=== PATIENT | female | born 1995 | race Caucasian/White ===

== ENCOUNTER 2017-10-13 19:47 | Inpatient (IN) | payer BC ==
[~2017-10-13] VITALS: Ht 167.6 cm; Wt 73.2 kg
[2017-10-13] MEDS ORDERED: KETOROLAC TROMETHAMINE 30 MG/ML VIAL IV STA (20:39)
[2017-10-13] MEDS ORDERED: GI COCKTAIL PO ONE (20:45)
[2017-10-13] MEDS ORDERED: SODIUM CHLORIDE 0.9% 1000ML 1,000 ML IV ONE (20:45)
[2017-10-13 20:54] LABS: BASO % 0.3 %; BASO ABS # 0.03 K/uL (0-0.2); EOS % 0.4 %; EOS ABS # 0.04 K/uL (0-0.5); HEMATOCRIT 38.8 % (37-47); HEMOGLOBIN 13.7 g/dL (12.0-16.0); IG# 0.01 K/uL (0.00-0.02); LYMPH % 24.6 %; LYMPH ABS # 2.54 K/uL (1.2-3.4); MEAN CORPUSCULAR HEMOGLOBIN 31.4 pg (25-34); MEAN CORPUSCULAR HGB CONC 35.3 g/dl (32-36); MEAN PLATELET VOLUME 10.5 fL (7.4-10.4); MONO % 9.6 %; MONO ABS # 0.99 K/uL (0.11-0.59); NEUT ABS # 6.73 K/uL (1.4-6.5); PLATELET COUNT 224 K/uL (130-400); RED CELL DISTRIBUTION WIDTH CV 12.9 % (11.5-14.5); RED CELL DISTRIBUTION WIDTH SD 41.9 fL (36.4-46.3); WHITE BLOOD COUNT 10.34 K/uL (4.8-10.8)
[2017-10-13] MEDS ORDERED: ALUMINUM/MAGNESIUM SUSP 30 ML UDC ONE (21:02)
[2017-10-13] MEDS ORDERED: LIDOCAINE HCL 2% VISC SOLN 20 ML UDC ONE (21:03)
[2017-10-13 21:08] LABS: ALBUMIN 4.6 gm/dl (3.4-5.0); CALCIUM 9.6 mg/dl (8.5-10.1); CREATININE 1.03 mg/dl (0.60-1.20); POTASSIUM 3.4 mmol/L (3.5-5.1)
[2017-10-13 21:10] LABS: TOTAL PROTEIN 8.3 gm/dl (6.4-8.2)
[2017-10-13] MEDS ORDERED: OPTIRAY 320 IV PRN (22:00)
--- NOTE | 2017-10-13 22:05 | DIAGNOSTIC IMAGING REPORT ---
CHEST 2 VIEWS ROUTINE CLINICAL HISTORY: Atypical chest pain COMPARISON STUDY: No previous studies for comparison. FINDINGS: The cardiac and mediastinal contours are normal. There is no evidence of focal pulmonary consolidation. There is no evidence of failure. No pleural effusions are visualized.[ Slight increased density of the lung bases is felt to be secondary to overlying breast tissue attenuation. IMPRESSION: No active disease in the chest. Electronically signed by: Alexander Swann M.D. 10/13/2017 10:04 PM Dictated Date/Time: 10/13/2017 10:04 PM
[2017-10-13 22:07] LABS: CKMB 2.8 ng/ml (0.5-3.6)
[2017-10-13] MEDS ORDERED: PATIENT'S ALLERGY INFO NEEDS ENTERED STA (22:09)
--- NOTE | 2017-10-13 22:18 | DIAGNOSTIC IMAGING REPORT ---
CT ANGIOGRAM OF THE CHEST CLINICAL HISTORY: Atypical chest pain COMPARISON STUDY: Chest x-ray dated 10/13/2017 TECHNIQUE: Following the IV administration of 90 mL of Optiray-320, CT angiogram of the thorax was performed from the thoracic inlet to the lung bases utilizing the pulmonary embolus protocol. Images are reviewed in the axial, sagittal, and coronal planes. IV contrast was administered without complication. MIP imaging was performed. A dose lowering technique was utilized adhering to the principles of ALARA. CT DOSE: 338.42 mGycm FINDINGS: No pathologically enlarged axillary mediastinal or hilar lymph nodes were visualized. There was no evidence of thoracic aortic dilatation. There were no pulmonary artery filling defects to indicate acute pulmonary embolism. No pleural effusions are visualized. There is a pneumomediastinum with extension into the base of the neck. There is no focal pulmonary consolidation. There is mild to moderate respiratory motion artifact. No pneumothorax is visualized. IMPRESSION: 1. No CT evidence of acute pulmonary embolism 2. No evidence of focal pulmonary consolidation 3. Pneumomediastinum Electronically signed by: Alexander Swann M.D. 10/13/2017 10:17 PM Dictated Date/Time: 10/13/2017 10:13 PM
[2017-10-13] MEDS ORDERED: BCPILLS PO (22:31)
[2017-10-14] VITALS (9 sets, daily range): BP systolic 102–133; BP diastolic 57–78; PULSE 54–81; TEMP 36.4–37; O2SAT 94–100; Ht 167.6 cm; Wt 73.2 kg
--- NOTE | 2017-10-14 01:59 | EMERGENCY ROOM VISIT NOTE ---
History First contact with patient: 20:33 Chief Complaint: RESPIRATORY PROBLEMS Stated Complaint: CHEST DISCOMFORT, SOB-[facility] REFERRED Nursing Triage Summary: pt reports started with cough and sob at 1500 today denies chills History of Present Illness The patient is a 21 year old female who presents to the Emergency Room with complaints of chest pain shortness of breath symptoms that began roughly 5-1/2 hours prior to arrival. The patient states that she took a nap, and awoke around 3 PM. She states that she had discomfort at that time ithat radiated into her jaw. He went to a local urgent care clinic, and was referred to the ER for further management. The patient has not had fever, chills, coughing, wheezing, or recent travel history. No injury to explain her symptoms. She does take control on a daily basis but does not have chronic disease. She is not expressing lightheadedness, dizziness, or abdominal pain. She has not had symptoms like this in the past, and rates her overall discomfort a 4/10. Review of Systems More than 10 systems were reviewed and otherwise negative with the exception of history of present illness. Past Medical/Surgical History No chronic medical disease Family History No pertinent family history Social History Smoking Status: Never Smoker Occupation Status: [employer] student Current/Historical Medications Scheduled Control Pills ( Control Pills), 1 TAB PO DAILY Physical Exam Vital Signs Date Time Temp Pulse Resp B/P (MAP) Pulse Ox O2 Delivery O2 Flow Rate FiO2 10/14/17 01:05 67 10/14/17 00:00 83 16 127/74 97 Room Air 10/13/17 22:32 72 16 108/67 98 Room Air 10/13/17 21:11 73 10/13/17 20:52 84 18 119/78 100 Room Air 10/13/17 20:52 100 Room Air 10/13/17 20:16 36.9 78 20 110/67 99 Room Air Physical Exam VITALS: Vitals are noted on the nurse's note and reviewed by myself. Vital signs stable. GENERAL: Well-developed, well-nourished, white female, who is in no acute distress and resting comfortably. Patient is cooperative with the examination. EARS: External ear normal. External auditory canals clear, tympanic membranes pearly chowdhury without erythema or effusion bilaterally. EYES: Pupils equal round and reactive to light and accommodation. Conjunctivae without injection, sclerae without icterus. Extraocular movements intact. NOSE: Patent, turbinates without inflammation or discharge. MOUTH: Mucous membranes moist. Tonsils are not enlarged. Pharynx without erythema, blood, or exudate. Uvula midline. Airway patent. NECK: Supple without nuchal rigidity. No lymphadenopathy. No thyromegaly. Cervical spine is nontender. HEART: Regular rate and rhythm without murmurs gallops or rubs. LUNGS: Clear to auscultation bilaterally without wheezes, rales or rhonchi. No retractions or accessory muscle use. ABDOMEN: Positive normal bowel sounds x 4. Soft, nontender, without masses or organomegaly. No guarding or rebound tenderness. MUSCULOSKELETAL: No muscle atrophy, erythema, or edema noted. Full range of motion without joint tenderness in all extremities. No tenderness to palpation. Normal gait. Strength 5/5 throughout. NEURO: Patient was alert and oriented to person place and time. CN II through XII grossly intact. Medical Decision & Procedures ER Provider Diagnostic Interpretation: CHEST 2 VIEWS ROUTINE CLINICAL HISTORY: Atypical chest pain COMPARISON STUDY: No previous studies for comparison. FINDINGS: The cardiac and mediastinal contours are normal. There is no evidence of focal pulmonary consolidation. There is no evidence of failure. No pleural effusions are visualized.[ Slight increased density of the lung bases is felt to be secondary to overlying breast tissue attenuation. IMPRESSION: No active disease in the chest. CT ANGIOGRAM OF THE CHEST CLINICAL HISTORY: Atypical chest pain COMPARISON STUDY: Chest x-ray dated 10/13/2017 TECHNIQUE: Following the IV administration of 90 mL of Optiray-320, CT angiogram of the thorax was performed from the thoracic inlet to the lung bases utilizing the pulmonary embolus protocol. Images are reviewed in the axial, sagittal, and coronal planes. IV contrast was administered without complication. MIP imaging was performed. A dose lowering technique was utilized adhering to the principles of ALARA. CT DOSE: 338.42 mGycm FINDINGS: No pathologically enlarged axillary mediastinal or hilar lymph nodes were visualized. There was no evidence of thoracic aortic dilatation. There were no pulmonary artery filling defects to indicate acute pulmonary embolism. No pleural effusions are visualized. There is a pneumomediastinum with extension into the base of the neck. There is no focal pulmonary consolidation. There is mild to moderate respiratory motion artifact. No pneumothorax is visualized. IMPRESSION: 1. No CT evidence of acute pulmonary embolism 2. No evidence of focal pulmonary consolidation 3. Pneumomediastinum Laboratory Results 10/13/17 20:42 Red Blood Count 4.36, Mean Corpuscular Volume 89.0, Mean Corpuscular Hemoglobin 31.4, Mean Corpuscular Hemoglobin Concent 35.3, Mean Platelet Volume 10.5, Neutrophils (%) (Auto) 65.0, Lymphocytes (%) (Auto) 24.6, Monocytes (%) (Auto) 9.6, Eosinophils (%) (Auto) 0.4, Basophils (%) (Auto) 0.3, Neutrophils # (Auto) 6.73, Lymphocytes # (Auto) 2.54, Monocytes # (Auto) 0.99, Eosinophils # (Auto) 0.04, Basophils # (Auto) 0.03 10/13/17 20:42 Test 10/13/17 20:42 10/13/17 20:47 10/14/17 00:25 White Blood Count 10.34 K/uL (4.8-10.8) Red Blood Count 4.36 M/uL (4.2-5.4) Hemoglobin 13.7 g/dL (12.0-16.0) Hematocrit 38.8 % (37-47) Mean Corpuscular Volume 89.0 fL (80-100) Mean Corpuscular Hemoglobin 31.4 pg (25-34) Mean Corpuscular Hemoglobin Concent 35.3 g/dl (32-36) Platelet Count 224 K/uL (130-400) Mean Platelet Volume 10.5 fL (7.4-10.4) Neutrophils (%) (Auto) 65.0 % Lymphocytes (%) (Auto) 24.6 % Monocytes (%) (Auto) 9.6 % Eosinophils (%) (Auto) 0.4 % Basophils (%) (Auto) 0.3 % Neutrophils # (Auto) 6.73 K/uL (1.4-6.5) Lymphocytes # (Auto) 2.54 K/uL (1.2-3.4) Monocytes # (Auto) 0.99 K/uL (0.11-0.59) Eosinophils # (Auto) 0.04 K/uL (0-0.5) Basophils # (Auto) 0.03 K/uL (0-0.2) RDW Standard Deviation 41.9 fL (36.4-46.3) RDW Coefficient of Variation 12.9 % (11.5-14.5) Immature Granulocyte % (Auto) 0.1 % Immature Granulocyte # (Auto) 0.01 K/uL (0.00-0.02) Anion Gap 12.0 mmol/L (3-11) Est Creatinine Clear Calc Drug Dose 89.0 ml/min Estimated GFR () 90.6 Estimated GFR (Non- 78.2 BUN/Creatinine Ratio 12.8 (10-20) Calcium Level 9.6 mg/dl (8.5-10.1) Total Bilirubin 1.0 mg/dl (0.2-1) Aspartate Amino Transf (AST/SGOT) 26 U/L (15-37) Alanine Aminotransferase (ALT/SGPT) 21 U/L (12-78) Alkaline Phosphatase 87 U/L (45-117) Total Creatine Kinase 255 U/L (26-192) Creatine Kinase MB 2.8 ng/ml (0.5-3.6) Creatine Kinase MB Ratio 1.1 (0-3.0) Pro-B-Type Natriuretic Peptide 65 pg/ml (0-450) Total Protein 8.3 gm/dl (6.4-8.2) Albumin 4.6 gm/dl (3.4-5.0) Globulin 3.7 gm/dl (2.5-4.0) Albumin/Globulin Ratio 1.2 (0.9-2) Lipase 287 U/L (73-393) Bedside D-Dimer 386 ng/mlFEU (0-450) Bedside Troponin I 0.050 ng/ml (0-0.045) Troponin I 0.098 ng/ml (0-0.045) Medications Administered Medications (Trade) Dose Ordered Sig/Sarah Route Start Time Stop Time Status Last Admin Dose Admin Sodium Chloride 1,000 ml @ 999 mls/hr Q1H1M ONCE IV 10/13/17 20:45 10/13/17 21:45 DC 10/13/17 21:04 999 MLS/HR Ketorolac Tromethamine (Toradol Inj) 30 mg NOW STAT IV 10/13/17 20:39 10/13/17 20:41 DC 10/13/17 21:05 30 MG Al Hydroxide/Mg Hydroxide (Maalox Susp) 30 ml STK-MED ONCE .ROUTE 10/13/17 21:02 10/13/17 21:03 DC 10/13/17 21:04 30 ML Lidocaine HCl (Viscous Lidocaine 2% Soln) 20 ml STK-MED ONCE .ROUTE 10/13/17 21:03 10/13/17 21:04 DC 10/13/17 21:05 20 ML Miscellaneous Information (Patient'S Allergy Info Needs Entered) 1 ea NOW STAT N/A 10/13/17 22:09 10/13/17 22:10 DC 10/13/17 22:09 1 EA ED Course Physical exam and history were performed. Nursing notes, EMR, and Medication List were personally reviewed. Patient appears to have chest pain symptoms after waking from sleep this afternoon. On examination the patient appears well, and certainly is not toxic. EKG was performed and reviewed by myself and my attending as normal sinus rhythm without acute ST elevation. IV access was established and labs were obtained. Portable chest x-ray was performed. The patient was hydrated with normal saline, given IV Toradol, and given a GI cocktail as her symptoms could be reflux related. The patient's blood work is as above and was reviewed. She does not have a significantly elevated white blood cell count, gross anemia, bandemia, or significant electrolyte imbalance. Lipase and transaminases are nondiagnostic. D-dimer 1 is negative. The patient troponin is elevated at 0.05, which is just over the threshold of 0.045. Because of this CT scan was felt necessary. CT angiogram was performed, and while this does not reveal evidence of pneumonia or blood clot, there is a pneumomediastinum. I discussed the case with my attending physician, Dr. Barragan, who remain closely involved in patient care and decision making. We discussed the case with Dr. Laguna, thoracic surgery, who is willing to follow the patient as an outpatient for the pneumomediastinum if she is discharged. Because of her symptoms a second troponin was performed, roughly 4 hours after the initial troponin. The second troponin was 0.09, and was thus felt to be distinctly elevated from her initial testing. The patient certainly could have some level of myocarditis or other viral component. I discussed the case with the on-call hospitalist who agreed to evaluate the patient here in the department. Please see their dictation for further patient course, plan, and disposition. The chart was completed utilizing Dragon Speech Voice Recognition Software. Grammatical errors, random word insertions, pronoun errors, and incomplete sentences are an occasional consequence of this system due to software limitations, ambient noise, and hardware issues. Any formal questions or concerns about the content, text, or information contained within the body of this dictation should be directly addressed to the provider for clarification. . Medical Decision Differential diagnosis includes, but is not limited to: Myocardial infarction, dysrhythmia, pericarditis, pneumothorax, aortic aneurysm/dissection, DVT/PE, anxiety, GERD, PUD, electrolyte imbalance, thyroid disorder, pneumonia, bronchitis, pancreatitis, and others Impression Primary Impression: Elevated troponin Additional Impressions: Shortness of breath Pneumomediastinum Departure Information Referrals [facility] (PCP) Patient Instructions My [facility] Problem Qualifiers
[2017-10-14] MEDS ORDERED: ACETAMINOPHEN 325 MG TAB PO PRN (02:00)
[2017-10-14] MEDS ORDERED: TRAMADOL HCL 50 MG TAB PO PRN (02:00)
[2017-10-14] MEDS ORDERED: ONDANSETRON INJ 2 MG/ML 2 ML VIAL IV PRN (02:00)
[2017-10-14] MEDS ORDERED: MAGNESIUM HYDROXIDE SUSP 30 ML UDC PO PRN (02:00)
[2017-10-14] MEDS ORDERED: POLYETHYLENE (MIRALAX) 17 GM PACK PO PRN (02:00)
[2017-10-14] MEDS ORDERED: ALUMINUM/MAGNESIUM/SIMETH (MAALOX MAX) 30 ML UDC PO PRN (02:00)
--- NOTE | 2017-10-14 02:18 | History and Physical ---
History & Physical Date & Time of Service: Oct 14, 2017 at 02:04 Chief Complaint: Chest Discomfort, Sob-[facility] Referred Primary Care Physician: [facility] History of Present Illness Source: patient 21 y/o F who denies any significant history. She woke up from a nap with central CP prompting her to attend the ER. She denies SOB, N/V, fevers. Her pain has been persistent and nonradiating. The pt had a marginally elevated trop on initial labs and was sent for a CTA. The study not show a PE, however, a small pneumomediastinum was found. A troponin was related at a 4 hour interval and had increased. Her chest discomfort persisted. Past Medical/Surgical History Denies active medical issues Family History No histroy of early CAD in family Social History Does not smoke or drink - [employer] student Smoking Status: Never Smoker Occupational Status: [employer] student Allergies Coded Allergies: No Known Allergies (Unverified , 10/13/17) Home Medications Scheduled Control Pills ( Control Pills), 1 TAB PO DAILY Review of Systems Constitutional: No fever, No chills, No sweats Eyes: No worsening of vision ENT: No hearing loss, No unusual epistaxis, No nasal symptoms Respiratory: No cough, No sputum, No wheezing Cardiovascular: + chest pain, No orthopnea, No PND Abdomen: No pain, No nausea, No vomiting Musculoskeletal: No joint pain Genitourinary - Female: No dysuria, No urinary frequency, No urinary urgency Neurologic: No memory loss, No paralysis, No weakness Psychiatric: No depression symptoms Endocrine: No fatigue Hematologic / Lymphatic: No abnormal bleeding/bruising Integumentary: No rash Allergic / Immunologic: No environmental allergies Physical Exam Vital Signs Date Time Temp Pulse Resp B/P (MAP) Pulse Ox O2 Delivery O2 Flow Rate FiO2 10/14/17 01:05 67 10/14/17 00:00 83 16 127/74 97 Room Air 10/13/17 22:32 72 16 108/67 98 Room Air 10/13/17 21:11 73 10/13/17 20:52 84 18 119/78 100 Room Air 10/13/17 20:52 100 Room Air 10/13/17 20:16 36.9 78 20 110/67 99 Room Air General Appearance: WD/WN, no apparent distress Head: normocephalic Eyes: normal inspection ENT: normal ENT inspection, pharynx normal Neck: supple, thyroid normal Respiratory/Chest: chest non-tender, lungs clear, normal breath sounds Cardiovascular: regular rate, rhythm, no edema, no gallop Abdomen/GI: normal bowel sounds, non tender, soft Back: normal inspection, no CVA tenderness Extremities/Musculoskelatal: normal inspection, no calf tenderness, normal capillary refill, no pedal edema, normal range of motion Neurologic/Psych: clinical allergist II-XII nml as tested, no motor/sensory deficits, alert, oriented x 3 Skin: normal color, warm/dry, no rash Diagnostics Laboratory Results Results Past 24 Hours Test 10/13/17 20:42 10/13/17 20:47 10/14/17 00:25 Range/Units White Blood Count 10.34 4.8-10.8 K/uL Red Blood Count 4.36 4.2-5.4 M/uL Hemoglobin 13.7 12.0-16.0 g/dL Hematocrit 38.8 37-47 % Mean Corpuscular Volume 89.0 80-100 fL Mean Corpuscular Hemoglobin 31.4 25-34 pg Mean Corpuscular Hemoglobin Concent 35.3 32-36 g/dl Platelet Count 224 130-400 K/uL Mean Platelet Volume 10.5 7.4-10.4 fL Neutrophils (%) (Auto) 65.0 % Lymphocytes (%) (Auto) 24.6 % Monocytes (%) (Auto) 9.6 % Eosinophils (%) (Auto) 0.4 % Basophils (%) (Auto) 0.3 % Neutrophils # (Auto) 6.73 1.4-6.5 K/uL Lymphocytes # (Auto) 2.54 1.2-3.4 K/uL Monocytes # (Auto) 0.99 0.11-0.59 K/uL Eosinophils # (Auto) 0.04 0-0.5 K/uL Basophils # (Auto) 0.03 0-0.2 K/uL RDW Standard Deviation 41.9 36.4-46.3 fL RDW Coefficient of Variation 12.9 11.5-14.5 % Immature Granulocyte % (Auto) 0.1 % Immature Granulocyte # (Auto) 0.01 0.00-0.02 K/uL Sodium Level 136 136-145 mmol/L Potassium Level 3.4 3.5-5.1 mmol/L Chloride Level 103 98-107 mmol/L Carbon Dioxide Level 21 21-32 mmol/L Anion Gap 12.0 3-11 mmol/L Blood Urea Nitrogen 13 7-18 mg/dl Creatinine 1.03 0.60-1.20 mg/dl Est Creatinine Clear Calc Drug Dose 89.0 ml/min Estimated GFR () 90.6 Estimated GFR (Non- 78.2 BUN/Creatinine Ratio 12.8 10-20 Random Glucose 83 70-99 mg/dl Calcium Level 9.6 8.5-10.1 mg/dl Total Bilirubin 1.0 0.2-1 mg/dl Aspartate Amino Transf (AST/SGOT) 26 15-37 U/L Alanine Aminotransferase (ALT/SGPT) 21 12-78 U/L Alkaline Phosphatase 87 45-117 U/L Total Creatine Kinase 255 26-192 U/L Creatine Kinase MB 2.8 0.5-3.6 ng/ml Creatine Kinase MB Ratio 1.1 0-3.0 Pro-B-Type Natriuretic Peptide 65 0-450 pg/ml Total Protein 8.3 6.4-8.2 gm/dl Albumin 4.6 3.4-5.0 gm/dl Globulin 3.7 2.5-4.0 gm/dl Albumin/Globulin Ratio 1.2 0.9-2 Lipase 287 73-393 U/L Bedside D-Dimer 386 0-450 ng/mlFEU Bedside Troponin I 0.050 0-0.045 ng/ml Troponin I 0.098 0-0.045 ng/ml Diagnostic Radiology CTA: 1. No CT evidence of acute pulmonary embolism 2. No evidence of focal pulmonary consolidation 3. Pneumomediastinum EKG NSR Impression Assessment and Plan 21 y/o F who denies any significant history. She woke up from a nap with central CP prompting her to attend the ER. She denies SOB, N/V, fevers. Her pain has been persistent and nonradiating. The pt had a marginally elevated trop on initial labs and was sent for a CTA. The study did not show a PE, however, a small pneumomediastinum was found. A troponin was related at a 4 hour interval and had increased. Her chest discomfort persisted. 1) CP - may be multifactorial - she may have discomfort owing to a pneumomediastinum. She may also be developing pericarditis or myocarditis. We have placed her on Colchicine and she received an NSAID as well. An echo is requested in addition to a cardiology consult. We will obtain an additional troponin AM. Her pneumomediastinum is unlikely to require treatment. We do not have an etiology for this as she denies a history of asthma, has not sustained trauma and does not perform contact sports or weight lifting. I am unable to presently unify her issues to explain the troponin elevation, as this should not be seen with a small pneumomediastinum. Full code - SCDs Total time for this admit including review of labs, meds, imaging, EKG - discussion with pt and ER attending - 35 min Level of Care Telemetry Resuscitation Status FULL RESUSCITATION VTE Prophylaxis VTE Risk Assessment Done? Y/N: Yes Risk Level: Very Low Given or contraindicated: SCD's
[2017-10-14] MEDS ORDERED: COLCHICINE 0.6 MG TAB PO STA (02:22)
[2017-10-14] MEDS ORDERED: IV FLUIDS COMPLETED PRN (02:30)
[2017-10-14] MEDS ORDERED: MAGNESIUM OXIDE 400 MG TAB PO ONE (03:00)
[2017-10-14] MEDS ORDERED: POTASSIUM CHLORIDE PWD 20 MEQ PACK PO ONE (03:00)
[2017-10-14] MEDS ORDERED: INFLUENZA ADMINISTRATION CHARGE ONE (08:00)
[2017-10-14] MEDS ORDERED: INFLUENZA VIRUS QUAD VACCINE 0.5 ML SYR IM. ONE (08:00)
[2017-10-14] MEDS: IBUPROFEN 200 MG TAB PO PRN ×2 (08:26→16:31)
[2017-10-14] MEDS ORDERED: COLCHICINE 0.6 MG TAB PO SCH (09:00)
--- NOTE | 2017-10-14 10:12 | Cardiology Consultation ---
Cardiology Consultation Date of Consultation: Oct 14, 2017. Requesting Physician: Dr. 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 She was doing aerobic exercise on the morning of 2017 and had no difficulty with that, no chest discomfort and no significant shortness of breath. She then laid down to take a nap and awoke at around 3 PM on 10/13/2017 with substernal chest discomfort. The discomfort was somewhat pleuritic in nature but was central, was worse with a deep inspiration and was worse lying down and improved with sitting up. She therefore presented to the emergency room where CT scanning showed a pneumomediastinum but no other abnormality (such as PE). She was also observed to have slightly elevated troponin levels and a normal electrocardiogram. She was started on colchicine 0.6 mg twice a day and ibuprofen 400 mg 3 times a day, with the first dose being given at 2 AM this morning. She feels that her symptoms have not changed. She has noted no other symptoms such as edema, shortness of breath, orthopnea, palpitations. Past Medical/Surgical History No significant past medical history Social History Smoking Status: Never Smoker History of Alcohol Use: No Review of Systems Constitutional: No fever, No weight loss, No weakness Respiratory: No cough, No wheezing, No shortness of breath, No dyspnea on exertion Cardiac: + see HPI, + chest pain, No orthopnea, No PND, No edema, No palpitations Abdomen: No pain, No nausea, No vomiting, No diarrhea, No GI bleeding Female : No problem reported Neurologic: No paralysis, No weakness, No numbness/tingling, No balance problems Heme: No abnormal bleeding/bruising, No clotting problems Endo: No fatigue Skin: No problem reported All Other Systems: Reviewed and Negative Allergies Coded Allergies: No Known Allergies (Unverified , 10/13/17) Medications Current Inpatient Medications Medications (Trade) Dose Ordered Sig/Sarah Route Start Time Stop Time Status Last Admin Dose Admin Ioversol (Optiray 320) 100 ml UD PRN IV 10/13/17 22:00 10/17/17 21:59 Acetaminophen (Tylenol Tab) 650 mg Q4H PRN PO 10/14/17 02:00 11/13/17 01:59 Al Hydrox/Mg Hydrox/Simethicone (Maalox Max Susp) 15 ml Q4H PRN PO 10/14/17 02:00 11/13/17 01:59 Magnesium Hydroxide (Milk Of Magnesia Susp) 30 ml Q12H PRN PO 10/14/17 02:00 11/13/17 01:59 Ondansetron HCl (Zofran Inj) 4 mg Q6H PRN IV 10/14/17 02:00 11/13/17 01:59 Polyethylene (Miralax Powder Packet) 17 gm DAILY PRN PO 10/14/17 02:00 11/13/17 01:59 Colchicine (Colchicine Tab) 0.6 mg BID PO 10/14/17 09:00 11/13/17 08:59 10/14/17 08:56 0.6 MG Tramadol HCl (Ultram Tab) 50 mg Q4H PRN PO 10/14/17 02:00 11/13/17 01:59 Ibuprofen (Advil Tab) 400 mg TID PRN PO 10/14/17 02:00 11/13/17 01:59 10/14/17 08:26 400 MG Miscellaneous (Iv Fluids Completed) 1 ea PRN PRN N/A 10/14/17 02:30 10/14/18 02:29 Physical Exam Vital Signs Past 12 Hours Date Time Temp Pulse Resp B/P (MAP) Pulse Ox O2 Delivery O2 Flow Rate FiO2 10/14/17 08:46 94 Room Air 10/14/17 07:43 68 20 111/73 (86) 94 Room Air 10/14/17 07:14 36.6 54 16 102/67 (79) 98 Room Air 10/14/17 03:00 36.9 67 16 133/78 97 Room Air 10/14/17 02:42 85 17 128/74 98 10/14/17 01:05 67 10/14/17 00:00 83 16 127/74 97 Room Air 10/13/17 22:32 72 16 108/67 98 Room Air Constitutional: General Apperance: heathly-appearing Level of Distress: NAD Psychiatric: Mental Status: active & alert Head: normocephalic Eyes: EOM: EOMI ENMT: normal ENT inspection, hearing grossly normal Neck: supple, no masses Lungs: Respiratory effort: no dyspnea, good air movement Auscultation: breath sounds normal, no wheezing Cardiovascular: Heart Auscultation: RRR, no murmurs, no rubs, no gallops Peripheral Pulses: Bruits: none appreciated Abdomen: Bowel Sounds: normal Inspection & Palpation: soft, no tenderness, guarding & rebound, no masses Musculoskeletal: normal strength (5/5 throughout) Extremities: no edema Neurologic: Cranial Nerves: grossly intact Sensation: grossly intact Data Laboratory Results: Last 24 Hours Test 10/13/17 20:42 10/13/17 20:47 10/14/17 00:25 10/14/17 05:30 White Blood Count 10.34 K/uL Red Blood Count 4.36 M/uL Hemoglobin 13.7 g/dL Hematocrit 38.8 % Mean Corpuscular Volume 89.0 fL Mean Corpuscular Hemoglobin 31.4 pg Mean Corpuscular Hemoglobin Concent 35.3 g/dl Platelet Count 224 K/uL Mean Platelet Volume 10.5 fL Neutrophils (%) (Auto) 65.0 % Lymphocytes (%) (Auto) 24.6 % Monocytes (%) (Auto) 9.6 % Eosinophils (%) (Auto) 0.4 % Basophils (%) (Auto) 0.3 % Neutrophils # (Auto) 6.73 K/uL Lymphocytes # (Auto) 2.54 K/uL Monocytes # (Auto) 0.99 K/uL Eosinophils # (Auto) 0.04 K/uL Basophils # (Auto) 0.03 K/uL RDW Standard Deviation 41.9 fL RDW Coefficient of Variation 12.9 % Immature Granulocyte % (Auto) 0.1 % Immature Granulocyte # (Auto) 0.01 K/uL Sodium Level 136 mmol/L Potassium Level 3.4 mmol/L Chloride Level 103 mmol/L Carbon Dioxide Level 21 mmol/L Anion Gap 12.0 mmol/L Blood Urea Nitrogen 13 mg/dl Creatinine 1.03 mg/dl Est Creatinine Clear Calc Drug Dose 89.0 ml/min Estimated GFR () 90.6 Estimated GFR (Non- 78.2 BUN/Creatinine Ratio 12.8 Random Glucose 83 mg/dl Calcium Level 9.6 mg/dl Total Bilirubin 1.0 mg/dl Aspartate Amino Transf (AST/SGOT) 26 U/L Alanine Aminotransferase (ALT/SGPT) 21 U/L Alkaline Phosphatase 87 U/L Total Creatine Kinase 255 U/L Creatine Kinase MB 2.8 ng/ml Creatine Kinase MB Ratio 1.1 Pro-B-Type Natriuretic Peptide 65 pg/ml Total Protein 8.3 gm/dl Albumin 4.6 gm/dl Globulin 3.7 gm/dl Albumin/Globulin Ratio 1.2 Lipase 287 U/L Bedside D-Dimer 386 ng/mlFEU Bedside Troponin I 0.050 ng/ml Troponin I 0.098 ng/ml Urine Color YELLOW Urine Appearance CLEAR Urine pH 8.0 Urine Specific [place] 1.032 Urine Protein NEG Urine Glucose (UA) NEG Urine Ketones TRACE Urine Occult Blood NEG Urine Nitrite NEG Urine Bilirubin NEG Urine Urobilinogen NEG Urine Leukocyte Esterase NEG Urine Test NEG Test 10/14/17 05:56 Troponin I 0.071 ng/ml Imaging: CT scanning shows a pneumomediastinum, chest x-ray was read as unremarkable EKG: Sinus rhythm, normal electrocardiogram Telemetry reviewed: Sinus rhythm, no significant arrhythmia Echocardiogram: Pending Assessment & Plan #1. Chest discomfort: I suspect the most likely cause of her chest discomfort is pneumomediastinum, the sudden onset and character of it I believe makes that most likely. She could also have pericarditis however and some of the character of her symptoms are suggestive of that. I suspect we should treat both. #2. Elevated cardiac enzymes: She may have pericarditis although her electric cardiac and does not show it and I do not hear anything on exam but perhaps it is early. For the moment I would continue colchicine and ibuprofen (although so far has not helped the discomfort but she had her first dose early this morning) . I would like to get 1 more set of cardiac enzymes and review the echocardiogram when available to make sure she does not have a pericardial effusion or left ventricular dysfunction. #3. Pneumomediastinum: I don't see how there could be a connection between that and the abnormal cardiac enzymes, although having the 2 together is unusual. Perhaps it is more likely that she had one or the other initially, perhaps asymptomatic or minimally so, and now presents with symptoms related to the other. If that is the case I suspect she had a mild pericarditis first which was asymptomatic although I can't be sure. Time may help us sort it out. Thank you for allowing me to participate in her care.
--- NOTE | 2017-10-14 14:11 | Hospitalist Progress Note ---
Hospitalist Progress Note Date of Service Oct 14, 2017. (Richa Zuniga .BREE) Subjective Pt evaluation today including: conversation w/ patient, conversation w/ family , physical exam, chart review, lab review, review of inpatient medication list Voiding: no voiding problems Ms. Alvarez is having increased chest pain 03/24. She is sob but this has not changed since admission. No nausea or diaphoresis, eating and drinking normally. Mother is at bedside. ROS Constitutional: no chills, aches, sweats or fever Respiratory: no sob,cough, sputum, or wheezing Cardiac: no palpitations, edema, orthopnea or lightheadedness GI: no abdominal pain, nausea, vomiting, diarrhea or constipation : no dysuria or hesitancy Extremities: no joint pain or weakness Skin: no rash All other systems reviewed and negative (Richa Zuniga .BREE) Medications Medications (Trade) Dose Ordered Sig/Sarah Route Start Time Stop Time Status Last Admin Dose Admin Sodium Chloride 1,000 ml @ 999 mls/hr Q1H1M ONCE IV 10/13/17 20:45 10/13/17 21:45 DC 10/13/17 21:04 999 MLS/HR Ketorolac Tromethamine (Toradol Inj) 30 mg NOW STAT IV 10/13/17 20:39 10/13/17 20:41 DC 10/13/17 21:05 30 MG Al Hydroxide/Mg Hydroxide (Maalox Susp) 30 ml STK-MED ONCE .ROUTE 10/13/17 21:02 10/13/17 21:03 DC 10/13/17 21:04 30 ML Lidocaine HCl (Viscous Lidocaine 2% Soln) 20 ml STK-MED ONCE .ROUTE 10/13/17 21:03 10/13/17 21:04 DC 10/13/17 21:05 20 ML Miscellaneous Information (Patient'S Allergy Info Needs Entered) 1 ea NOW STAT N/A 10/13/17 22:09 10/13/17 22:10 DC 10/13/17 22:09 1 EA Colchicine (Colchicine Tab) 0.6 mg NOW STAT PO 10/14/17 02:22 10/14/17 02:23 DC 10/14/17 03:45 0.6 MG Colchicine (Colchicine Tab) 0.6 mg BID PO 10/14/17 09:00 11/13/17 08:59 10/14/17 08:56 0.6 MG Ibuprofen (Advil Tab) 400 mg TID PRN PO 10/14/17 02:00 11/13/17 01:59 10/14/17 08:26 400 MG Potassium Chloride (Klor-Con Pwd) 20 meq ONE ONCE PO 10/14/17 03:00 10/14/17 03:01 DC 10/14/17 03:45 20 MEQ Magnesium Oxide (Mag-Ox Tab) 400 mg ONE ONCE PO 10/14/17 03:00 10/14/17 03:01 DC 10/14/17 03:46 400 MG (Richa Zuniga CRNP) Objective Vital Signs Date Time Temp Pulse Resp B/P (MAP) Pulse Ox O2 Delivery O2 Flow Rate FiO2 10/14/17 13:17 37.0 57 18 108/57 (74) 100 10/14/17 08:46 94 Room Air 10/14/17 07:43 68 20 111/73 (86) 94 Room Air 10/14/17 07:14 36.6 54 16 102/67 (79) 98 Room Air 10/14/17 03:00 36.9 67 16 133/78 97 Room Air 10/14/17 02:42 85 17 128/74 98 10/14/17 01:05 67 10/14/17 00:00 83 16 127/74 97 Room Air 10/13/17 22:32 72 16 108/67 98 Room Air 10/13/17 21:11 73 10/13/17 20:52 84 18 119/78 100 Room Air 10/13/17 20:52 100 Room Air 10/13/17 20:16 36.9 78 20 110/67 99 Room Air (Richa Zuniga, BREE) Physical Exam Notes: General: no distress Eyes: normal inspection, PERLL Respiratory: chest non tender, clear to auscultation, normal breath sounds, no respiratory distress, no accessory muscle use Cardiac: regular rate and rhythm, no rub or gallop, no murmur, no edema, no jvd GI/: active bowel sounds, no abd pain or tenderness, soft, non distended Extremities: normal range of motion, normal strength, non tender Neuro/Psych: alert and oriented x 3, normal mood and affect Skin: normal color, dry (Richa Zuniga ., [employer] TECHNICIAN) Laboratory Results Last 24 Hours Test 10/13/17 20:42 10/13/17 20:47 10/14/17 00:25 10/14/17 05:30 White Blood Count 10.34 K/uL Red Blood Count 4.36 M/uL Hemoglobin 13.7 g/dL Hematocrit 38.8 % Mean Corpuscular Volume 89.0 fL Mean Corpuscular Hemoglobin 31.4 pg Mean Corpuscular Hemoglobin Concent 35.3 g/dl Platelet Count 224 K/uL Mean Platelet Volume 10.5 fL Neutrophils (%) (Auto) 65.0 % Lymphocytes (%) (Auto) 24.6 % Monocytes (%) (Auto) 9.6 % Eosinophils (%) (Auto) 0.4 % Basophils (%) (Auto) 0.3 % Neutrophils # (Auto) 6.73 K/uL Lymphocytes # (Auto) 2.54 K/uL Monocytes # (Auto) 0.99 K/uL Eosinophils # (Auto) 0.04 K/uL Basophils # (Auto) 0.03 K/uL RDW Standard Deviation 41.9 fL RDW Coefficient of Variation 12.9 % Immature Granulocyte % (Auto) 0.1 % Immature Granulocyte # (Auto) 0.01 K/uL Sodium Level 136 mmol/L Potassium Level 3.4 mmol/L Chloride Level 103 mmol/L Carbon Dioxide Level 21 mmol/L Anion Gap 12.0 mmol/L Blood Urea Nitrogen 13 mg/dl Creatinine 1.03 mg/dl Est Creatinine Clear Calc Drug Dose 89.0 ml/min Estimated GFR () 90.6 Estimated GFR (Non- 78.2 BUN/Creatinine Ratio 12.8 Random Glucose 83 mg/dl Calcium Level 9.6 mg/dl Total Bilirubin 1.0 mg/dl Aspartate Amino Transf (AST/SGOT) 26 U/L Alanine Aminotransferase (ALT/SGPT) 21 U/L Alkaline Phosphatase 87 U/L Total Creatine Kinase 255 U/L Creatine Kinase MB 2.8 ng/ml Creatine Kinase MB Ratio 1.1 Pro-B-Type Natriuretic Peptide 65 pg/ml Total Protein 8.3 gm/dl Albumin 4.6 gm/dl Globulin 3.7 gm/dl Albumin/Globulin Ratio 1.2 Lipase 287 U/L Bedside D-Dimer 386 ng/mlFEU Bedside Troponin I 0.050 ng/ml Troponin I 0.098 ng/ml Urine Color YELLOW Urine Appearance CLEAR Urine pH 8.0 Urine Specific [place] 1.032 Urine Protein NEG Urine Glucose (UA) NEG Urine Ketones TRACE Urine Occult Blood NEG Urine Nitrite NEG Urine Bilirubin NEG Urine Urobilinogen NEG Urine Leukocyte Esterase NEG Urine Test NEG Test 10/14/17 05:56 10/14/17 12:37 Troponin I 0.071 ng/ml 0.036 ng/ml (Richa Zuniga CRNP) Assessment and Plan Ms. Alvarez is a 21 year old female with pneumomediastinum and elevated troponin Pneumomediastinum - seen on CT - increased pain today - repeat 2 view - [place] q4h prn - repeat EKG SB in the 50s Elevated troponin - peaked at 0.098 - consulted cardiology - continue NSAIDs and colchicine for now until pericarditis ruled out - Echo pending - repeat troponin today wnl Full code - SCDs (Richa Zuniga CRNP) Reviewed: Pt Seen/Exam by Me (aNya Guzman MD) History [employer] TECHNICIAN Supervision Note: I interviewed and examined the patient. Discussed with BREE Zuniga and agree with findings and plan as documented in the note. Any exceptions or clarifications are listed here: Also discussed the case with Cardiology and CT Surgery. Pt still having 5/10 CP into anterior neck, was a 7/10 before hydrocodone. No SOB. Pain worse with deep inspiration. ECHO essentially normal Troponin trended downward, repeat CXR unrevealing/normal ECG SB Vitals reviewed, tele with SB NAD, AAOx3 RRR no mgr CTAB no wcr no TTP over sternum ABd +BS soft NT ND Ext no edema, good cap refill 21 yo healthy female here with spontaneous pneumomediastinum after exercising, and mildly elevated troponin. Discussed with Cardio and will dc colchicine and ibuprofen as no evidence of pericarditis on ECHO or ECG. CP likely related to pneumomediastinum. Pneumomediastinum could be spontaneous from small bleb -will consult Thoracic Surgery in AM -repeat CXR and CBC in AM to watch for leukocytosis -pain control with hydrocodone -advised pt to let RN know if has worsening pain or SOB Documented By: Naya Guzman (Naya Guzman MD)
[2017-10-14] MEDS: HYDROCODONE/ACETAMOPHEN 5/325MG TAB PO PRN ×3 (14:17→23:26)
--- NOTE | 2017-10-14 14:39 | DIAGNOSTIC IMAGING REPORT ---
CHEST 2 VIEWS ROUTINE CLINICAL HISTORY: Chest pain. Pneumomediastinum. COMPARISON STUDY: Chest radiograph and chest CT October 13, 2017. FINDINGS: Lung volumes are normal. There is no pneumothorax or pleural effusion. Lungs are clear. Cardiac size is normal. Mediastinal contours are normal. Pneumomediastinum shown on CT of October 13, 2017 is not well visualized on this exam, likely due to technique. There is no soft tissue gas within the neck. IMPRESSION: 1. No acute cardiopulmonary findings. 2. Pneumomediastinum shown on prior chest CT is not well visualized on this exam, due to technique. However, there is no evidence for increasing pneumomediastinum by radiography. Electronically signed by: Konrad Wren M.D. 10/14/2017 2:38 PM Dictated Date/Time: 10/14/2017 2:34 PM
--- NOTE | 2017-10-14 16:11 | ECHOCARDIOGRAM REPORT ---
*NOTICE TO RECEIVING [employer] This information is strictly Confidential and protected under [place] law. [place] law prohibits you from making any further disclosure of this information unless further disclosure is expressly permitted by the written consent of the person to whom it pertains or is authorized by law. A general authorization for the release of medical or other information is not sufficient for this purpose. Hospital accepts no responsibility if the information is made available to any other person, INCLUDING THE PATIENT. Interpretation Summary * Name: GONZALEZ WATSON Study Date: 10/14/2017 10:12 AM BP: 111/73 mmHg * Patient Location: [facility]\S\[id number]\1 HR: 62 * : 1995 (M/d/yyyy) Gender: Female Height: 66 in * Age: 21 yrs Ethnicity: [place] Weight: 160 lb * Ordering Physician: Markell Corona * Referring Physician: Self, Referred * Performed By: Hanna Giron RCS * * Reason For Study: ELEVATED TROPONIN - PERICARDITIS * BSA: 1.8 m2 * -- Conclusions -- * 1. Normal LV size. Normal LV wall thickness. * 2. Normal LV systolic function. LVEF 55-60 %. No regional wall motion abnormalities. * 3. Borderline RV enlargement, normal RV function * 4. Mild pulmonic regurgitation. No other significant valvular pathology. * 5. No prior studies for comparison. Procedure Details * A complete two-dimensional transthoracic echocardiogram was performed (2D, M-mode, Doppler and color flow Doppler). Left Ventricle * The left ventricle is grossly normal size. * There is normal left ventricular wall thickness. * Ejection Fraction = 55-60%. * No regional wall motion abnormalities noted. Right Ventricle * Borderline right ventricular enlargement. * The right ventricular systolic function is normal as assessed by tricuspid annular plane systolic excursion (TAPSE) (normal >1.5 cm). Atria * The left atrial size is normal. * Borderline right atrial enlargement. * There is no evidence of atrial septal defect, but resolution does not allow assessment for a patent foramen ovale. Mitral Valve * The mitral valve is grossly normal. * There is no mitral valve stenosis. * There is no mitral regurgitation noted. Tricuspid Valve * The tricuspid valve is not well visualized, but is grossly normal. * There is trace tricuspid regurgitation. Aortic Valve * The aortic valve opens well. * The aortic valve is trileaflet. * No hemodynamically significant valvular aortic stenosis. * There is no significant aortic regurgitation. Pulmonic Valve * The pulmonary valve is inadequately visualized, but the Doppler data is adequate for interpretation. * There is no pulmonic valvular stenosis. * Mild pulmonic valvular regurgitation. Great Vessels * The aortic root and proximal ascending aorta are normal sized. Pericardium/Pleural * There is no pericardial effusion. Great Vessels * IVC < 2.1, <50% change with respiration. Est RA 8 mmHg. * There is no evidence of pulmonary hypertension. The PA systolic pressure is less than 36 mmHg. MMode 2D Measurements and Calculations IVSd 1.2 cm IVSs 1.4 cm LVIDd 4.9 cm LVIDs 3.8 cm LVPWd 0.79 cm LVPWs 1.1 cm IVS/LVPW 1.5 FS 22.7 % EDV(Teich) 113.3 ml ESV(Teich) 61.8 ml EF(Teich) 45.5 % EDV(cubed) 118.3 ml ESV(cubed) 54.7 ml EF(cubed) 53.8 % % IVS thick 20.3 % % LVPW thick 43.0 % LV mass(C)d 170.4 grams LV mass(C)dI 93.6 grams/m\S\2 LV mass(C)s 165.0 grams LV mass(C)sI 90.7 grams/m\S\2 SV(Teich) 51.5 ml SI(Teich) 28.3 ml/m\S\2 SV(cubed) 63.6 ml SI(cubed) 35.0 ml/m\S\2 Ao root diam 2.6 cm Ao root area 5.2 cm\S\2 ACS 1.9 cm LA dimension 3.1 cm LA/Ao 1.2 LVOT diam 2.0 cm LVOT area 3.3 cm\S\2 LVAd ap4 37.1 cm\S\2 LVLd ap4 8.1 cm EDV(MOD-sp4) 137.8 ml EDV(sp4-el) 144.3 ml LVAs ap4 24.4 cm\S\2 LVLs ap4 6.8 cm ESV(MOD-sp4) 71.4 ml ESV(sp4-el) 74.1 ml EF(MOD-sp4) 48.2 % EF(sp4-el) 48.6 % LVAd ap2 33.6 cm\S\2 LVLd ap2 8.5 cm EDV(MOD-sp2) 110.7 ml EDV(sp2-el) 112.7 ml LVAs ap2 19.9 cm\S\2 LVLs ap2 7.0 cm ESV(MOD-sp2) 47.9 ml ESV(sp2-el) 48.3 ml EF(MOD-sp2) 56.7 % EF(sp2-el) 57.1 % LVLd %diff 5.0 % EDV(MOD-bp) 128.0 ml LVLs %diff 2.3 % ESV(MOD-bp) 59.9 ml EF(MOD-bp) 53.2 % SV(MOD-sp4) 66.4 ml SI(MOD-sp4) 36.5 ml/m\S\2 SV(MOD-sp2) 62.7 ml SI(MOD-sp2) 34.5 ml/m\S\2 SV(MOD-bp) 68.1 ml SI(MOD-bp) 37.4 ml/m\S\2 SV(sp4-el) 70.2 ml SI(sp4-el) 38.6 ml/m\S\2 SV(sp2-el) 64.4 ml SI(sp2-el) 35.4 ml/m\S\2 Doppler Measurements and Calculations MV E max armando 73.3 cm/sec MV A max armando 51.2 cm/sec MV E/A 1.4 MV P1/2t max armando 94.0 cm/sec MV P1/2t 83.7 msec MVA(P1/2t) 2.6 cm\S\2 MV dec slope 329.2 cm/sec\S\2 MV dec time 0.25 sec Ao V2 max 118.2 cm/sec Ao max PG 5.6 mmHg Ao max PG (full) 1.9 mmHg OLGA LIDIA(V,A) 2.7 cm\S\2 OLGA LIDIA(V,D) 2.7 cm\S\2 LV V1 max PG 3.7 mmHg LV V1 max 96.4 cm/sec PA V2 max 100.9 cm/sec PA max PG 4.1 mmHg TR max armando 226.9 cm/sec
[2017-10-15] VITALS (7 sets, daily range): BP systolic 96–108; BP diastolic 65–69; PULSE 48–66; TEMP 36.3–36.4; O2SAT 95–100
[2017-10-15 07:41] LABS: BASO % 0.7 %; BASO ABS # 0.03 K/uL (0-0.2); EOS % 4.2 %; EOS ABS # 0.19 K/uL (0-0.5); HEMATOCRIT 37.5 % (37-47); HEMOGLOBIN 12.7 g/dL (12.0-16.0); IG# 0.01 K/uL (0.00-0.02); LYMPH % 46.5 %; LYMPH ABS # 2.11 K/uL (1.2-3.4); MEAN CELL VOLUME 91.7 fL (80-100); MEAN CORPUSCULAR HEMOGLOBIN 31.1 pg (25-34); MEAN CORPUSCULAR HGB CONC 33.9 g/dl (32-36); MEAN PLATELET VOLUME 10.8 fL (7.4-10.4); MONO % 11.7 %; MONO ABS # 0.53 K/uL (0.11-0.59); NEUT % 36.7 %; NEUT ABS # 1.67 K/uL (1.4-6.5); PLATELET COUNT 183 K/uL (130-400); RED CELL DISTRIBUTION WIDTH SD 43.5 fL (36.4-46.3); WHITE BLOOD COUNT 4.54 K/uL (4.8-10.8)
--- NOTE | 2017-10-15 07:48 | DIAGNOSTIC IMAGING REPORT ---
CHEST 2 VIEWS ROUTINE CLINICAL HISTORY: Pneumomediastinum. COMPARISON STUDY: Chest CT October 13, 2017 and chest radiograph October 14, 2017. FINDINGS: There is no pneumothorax or pleural effusion. Pneumomediastinum is not identified on this exam but may be occult by radiography. Linear right suprahilar opacity suggests atelectasis. Cardiomediastinal silhouette is unremarkable. IMPRESSION: 1. No acute cardiopulmonary findings. 2. No pneumomediastinum identified however this may be occult by radiography. Electronically signed by: Konrad Wren M.D. 10/15/2017 7:47 AM Dictated Date/Time: 10/15/2017 7:45 AM
[2017-10-15 08:12] LABS: BLOOD UREA NITROGEN 13 mg/dl (7-18); CARBON DIOXIDE 25 mmol/L (21-32); CREATININE 0.84 mg/dl (0.60-1.20); GLUCOSE 86 mg/dl (70-99); SODIUM 136 mmol/L (136-145)
--- NOTE | 2017-10-15 09:12 | Cardiology Follow-Up ---
Subjective Date of Service: Oct 15, 2017. 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 She was doing aerobic exercise on the morning of 2017 and had no difficulty with that, no chest discomfort and no significant shortness of breath. She then laid down to take a nap and awoke at around 3 PM on 10/13/2017 with substernal chest discomfort. The discomfort was somewhat pleuritic in nature but was central, was worse with a deep inspiration and was worse lying down and improved with sitting up. She therefore presented to the emergency room where CT scanning showed a pneumomediastinum but no other abnormality (such as PE). She was also observed to have slightly elevated troponin levels and a normal electrocardiogram. She was started on colchicine 0.6 mg twice a day and ibuprofen 400 mg 3 times a day, with the first dose being given at 2 AM yesterday morning. Her cardiac enzymes had a decreasing pattern since admission and normalized yesterday afternoon, it seemed unlikely that this improvement was due to medical therapy which only started several hours before the normal enzyme reading. Echocardiography showed normal left ventricular function and no pericardial effusion. She feels that her symptoms have not changed. We therefore discontinued the colchicine and ibuprofen. This morning she feels her may have been slight improvement in her symptoms, although they remain. They have certainly not worsened. She has noted no other symptoms such as edema, shortness of breath, orthopnea, palpitations. Social History Smoking Status: Never Smoker History of Alcohol Use: No Review of Systems Respiratory: No cough, No wheezing, No shortness of breath, No dyspnea on exertion Cardiac: + see HPI, + chest pain, No orthopnea, No PND, No edema, No palpitations Medications No cardiac Objective Vital Signs Past 12 Hours Date Time Temp Pulse Resp B/P (MAP) Pulse Ox O2 Delivery O2 Flow Rate FiO2 10/15/17 07:41 95 Room Air 10/15/17 07:28 36.4 48 16 105/68 (80) 100 10/15/17 05:58 36.3 53 20 96/68 (77) 98 Room Air 10/15/17 04:00 Room Air 1/31/18 00:39 36.4 66 18 108/69 (82) 99 Room Air 10/14/17 23:30 Room Air 10/14/17 22:37 36.5 58 16 103/66 (78) 99 Room Air Last Recorded Weight-Kilograms: 73.200 Physical Exam Constitutional: General Apperance: heathly-appearing Level of Distress: NAD Lungs: Respiratory effort: no dyspnea, good air movement Auscultation: breath sounds normal, no wheezing Cardiovascular: Heart Auscultation: RRR, no murmurs, no rubs, no gallops Peripheral Pulses: Bruits: none appreciated Extremities: no edema Data Laboratory Results: Last 24 Hours Test 10/14/17 12:37 10/15/17 07:25 Troponin I 0.036 ng/ml < 0.015 ng/ml White Blood Count 4.54 K/uL Red Blood Count 4.09 M/uL Hemoglobin 12.7 g/dL Hematocrit 37.5 % Mean Corpuscular Volume 91.7 fL Mean Corpuscular Hemoglobin 31.1 pg Mean Corpuscular Hemoglobin Concent 33.9 g/dl Platelet Count 183 K/uL Mean Platelet Volume 10.8 fL Neutrophils (%) (Auto) 36.7 % Lymphocytes (%) (Auto) 46.5 % Monocytes (%) (Auto) 11.7 % Eosinophils (%) (Auto) 4.2 % Basophils (%) (Auto) 0.7 % Neutrophils # (Auto) 1.67 K/uL Lymphocytes # (Auto) 2.11 K/uL Monocytes # (Auto) 0.53 K/uL Eosinophils # (Auto) 0.19 K/uL Basophils # (Auto) 0.03 K/uL RDW Standard Deviation 43.5 fL RDW Coefficient of Variation 13.0 % Immature Granulocyte % (Auto) 0.2 % Immature Granulocyte # (Auto) 0.01 K/uL Sodium Level 136 mmol/L Potassium Level 4.0 mmol/L Chloride Level 105 mmol/L Carbon Dioxide Level 25 mmol/L Anion Gap 7.0 mmol/L Blood Urea Nitrogen 13 mg/dl Creatinine 0.84 mg/dl Est Creatinine Clear Calc Drug Dose 109.3 ml/min Estimated GFR () 116.0 Estimated GFR (Non- 100.1 BUN/Creatinine Ratio 15.4 Random Glucose 86 mg/dl Calcium Level 9.0 mg/dl Magnesium Level 1.9 mg/dl Imaging: Chest x-ray this morning shows no pneumomediastinum (but has not been seen on x-ray in the past either) EKG: This morning sinus bradycardia, otherwise normal Telemetry reviewed: Sinus rhythm, sinus bradycardia Assessment and Plan #1. Chest discomfort: I suspect the most likely cause of her chest discomfort is pneumomediastinum, the sudden onset and character of it I believe makes that most likely. There appears to be no real evidence of pericarditis or myocarditis. #2. Elevated cardiac enzymes: I can't explain why her cardiac enzymes are elevated, they were minimally elevated but had a decreasing pattern throughout her hospitalization suggesting it was pre-admission. I don't know how the pneumomediastinum could cause it, perhaps vigorous exercise prior to the pneumomediastinum could explain it but I don't have any good explanation. It does not appear to be due to myocarditis however and therefore I would not treat it specifically or do any further testing at this time. I discussed things with her and her mother this morning, they would feel more comfortable having a follow-up visit in the office and I think it is reasonable. I don't want to miss something and since we don't have a real good explanation for the abnormal enzymes I'm going to have her come into the office in 2-4 weeks and I will repeat the echocardiogram, I think I will get 1 more set of enzymes at that time and a limited echo. Thank you for allowing me to participate in her care.
--- NOTE | 2017-10-15 11:21 | Discharge Instructions ---
Discharge Instructions Date of Service Oct 15, 2017. Admission Reason for Admission: Chest Pain,Pneumomediastinum Discharge Discharge Diagnosis / Problem: Pneumomediastinum Discharge Goals Goal(s): Decrease discomfort, Improve function, Increase independence Activity Recommendations Activity Limitations: per Instructions/Follow-up section Lifting Limitations: gradually increase as tolerated (would avoid excessive lifting for the next week) Exercise/Sports Limitations: gradually increase as tolerated (would avoid strenuous activity x 1 week but can walk for exercise) . Instructions / Follow-Up Instructions / Follow-Up Pneumomediastinum: (Air leaked into the middle of your chest) - Cannot specifically say why this occurred. This can possibly be from exercise. - Avoid activities that can cause direct trauma to the chest. Would take it easy over the next week. Can walk for exercise but avoid heavy lifting or strenuous activity for the next week. - The air normally will resolve on its own - You can continue to take Tylenol and Ibuprofen for pain but follow dosage instructions on the package. Elevated Troponins: - This is a cardiac enzyme that is released if there is strain on the heart. This is only minimally elevated but cannot be explained by the pneumomediastinum - You have been monitored on a monitor and have no irregular heart rhythms and the echo (ultrasound) of your heart does not show any wall motion changes or changes in how your heart functions. - There is no findings suggesting pericarditis or myocarditis (this is inflammation of the sac around the heart or the heart muscle itself) - You will follow-up with cardiology for a repeat echo and cardiac enzymes Current Hospital Diet Patient's current hospital diet: Regular Diet Discharge Diet Recommended Diet: Regular Diet Pending Studies Studies pending at discharge: no Medical Emergencies . Who to Call and When: Medical Emergencies: If at any time you feel your situation is an emergency, please call 911 immediately. . Non-Emergent Contact Non-Emergency issues call your: Primary Care Provider Call Non-Emergent contact if: you have a fever, your pain is concerning you, you have any medication questions . . "Provider Documentation" section prepared by Rocío Sen. . VTE Core Measure Inpt VTE Proph given/why not?: SCD's
[2017-10-15] MEDS ORDERED: HYDR-5688 PO (11:23)
--- NOTE | 2017-10-15 17:41 | Discharge Summary ---
Discharge Summary Date of Service Oct 15, 2017. Discharge Summary Admission Date: Oct 14, 2017 at 19:34 Discharge Date: Oct 15, 2017 Discharge Disposition: Home Principal Diagnosis: Spontaneous Pneumomediastinum Problems/Secondary Diagnoses: 1. Elevated Troponins - Unknown Etiology Procedures: CT ANGIOGRAM OF THE CHEST FINDINGS: No pathologically enlarged axillary mediastinal or hilar lymph nodes were visualized. There was no evidence of thoracic aortic dilatation. There were no pulmonary artery filling defects to indicate acute pulmonary embolism. No pleural effusions are visualized. There is a pneumomediastinum with extension into the base of the neck. There is no focal pulmonary consolidation. There is mild to moderate respiratory motion artifact. No pneumothorax is visualized. IMPRESSION: 1. No CT evidence of acute pulmonary embolism 2. No evidence of focal pulmonary consolidation 3. Pneumomediastinum ECHOCARDIOGRAM -- Conclusions -- 1. Normal LV size. Normal LV wall thickness. 2. Normal LV systolic function. LVEF 55-60 %. No regional wall motion abnormalities. 3. Borderline RV enlargement, normal RV function 4. Mild pulmonic regurgitation. No other significant valvular pathology. 5. No prior studies for comparison Consultations: 1. Cardiology 2. CT Surgery Medication Reconciliation New Medications: Hydrocodone/Acetaminophen 5MG/325MG ([place] 5MG/325MG) Tab 1 TAB PO Q4H PRN for Pain for 3 Days, #10 TAB Continued Medications: Control Pills ( Control Pills) Tab 1 TAB PO DAILY, TAB Discharge Exam ROS: General/Constitutional: Denies fever/chills, fatigue, weakness ENT: Denies visual changes, nasal drainage, hearing loss, sore throat, trouble swallowing Cardiovascular: + mid-sternal CP with radiation to neck - improving; Denies palpitations, edema Respiratory: Denies cough, sputum, SOB, wheezing, orthopnea GI: Denies nausea, vomiting, abdominal pain, constipation, diarrhea, melena/ hematochezia : Denies dysuria Musculoskeletal: Denies joint/muscle aches, weakness, swelling Neurologic: Denies dizziness/lightheadedness, numbness/tingling, weakness Hematologic/Lymphatic: Denies bleeding/clotting abnormalities Skin: Denies rash General Appearance: WDWN in NAD who is A&O x 3 HEENT: Head is normocephalic/atraumatic; EOMI; PERRLA; Hearing grossly intact; Mucous membranes moist; Pharynx negative for exudate/lesions Neck: Supple; Trachea midline; Neg JVD; Neg lymphadenopathy Heart: RRR with no M/G/R Lungs: CTA in all lung gomes bilaterally; Respirations unlabored; Neg accessory muscle use; no chest wall tenderness/crepitus Abdomen: Soft, non-tender, non-distended; Positive BS x 4 quadrants Extremities: Neg cyanosis or edema Neurological: Speech clear; Gross motor/sensory function intact; Neg focal neurologic deficits Psychiatric: Appropriate mood/affect Skin: Normal Color; Warm/Dry; Neg rashes, ecchymosis, lacerations/ulcerations Hospital Course ADMISSION: 21 y/o F who denies any significant history. She woke up from a nap with central CP prompting her to attend the ER. She denies SOB, N/V, fevers. Her pain has been persistent and nonradiating. The pt had a marginally elevated trop on initial labs and was sent for a CTA. The study not show a PE, however, a small pneumomediastinum was found. A troponin was related at a 4 hour interval and had increased. Her chest discomfort persisted. HOSPITAL COURSE: Ms. Alvarez was admitted for spontaneous pneumomediastinum and mildly elevated troponins with unknown etiology. Troponin on admission 0.098 continue to trend down to a undetectable level. Initial question of early pericarditis however no resolution of symptoms with colchicine and NSAIDs. No EKG abnormalities appreciated. Echocardiogram does not reveal any wall motion changes or pericardial effusions. At this time, pneumomediastinum and elevated troponin do not have a specific etiology. Discussed with CT surgery who suggests in young healthy individuals this could be a bleb that leaked. Patient does report regular exercise. She continues to have mild chest pain in the midsternal region that radiates into the neck. Patient will follow-up with cardiology for repeat echo and troponin, and will follow-up with CT surgery. Total Time Spent: Greater than 30 minutes This includes examination of the patient, discharge planning, medication reconciliation, and communication with other providers. Discharge Instructions Please refer to the electronic Patient Visit Report (Discharge Instructions) for additional information. Follow-Up With Thoracic Surgery within 1 week With Cardiology within 3 weeks for repeat ECHO With [facility] within 1 week Additional Copies To Evert Reid M.D.; [facility]; Juan Alberto Laguna MD Reviewed: Pt Seen/Exam by Me History PA Supervision Note: I interviewed and examined the patient. Discussed with AMY Sen and agree with findings and plan as documented in the note. Any exceptions or clarifications are listed here: Also discussed the case with Cardiology and CT Surgery PA today. Pt now with improved chest pain, down to a 4/10 and not taking anything for pain anymore today. No SOB, no abd pain. No headache, no other concerns. ECHO essentially normal Troponin trended downward to normal which is suggestive of demand ischemia pattern, repeat CXR unrevealing/normal Vitals reviewed, tele with SB, no arrhythmias NAD, AAOx3 RRR no mgr CTAB no wcr no TTP over sternum ABd +BS soft NT ND Ext no edema, good cap refill 21 yo healthy female here with spontaneous pneumomediastinum after exercising, and mildly elevated troponin which has since trended downward. Pt denies any recent trauma/falls/abuse, no h/o asthma or pulmonary issues. Initially treated with one dose of colchicine and ibuprofen, but with no evidence of pericarditis on ECHO or ECG, those meds were stopped. CP likely related to pneumomediastinum. Pneumomediastinum could be spontaneous from small bleb. Symptoms improving, no PTX on CXR. CBC and BMP normal Stable for discharge to home today -f/u with Thoracic Surgery within 1 week -repeat ECHO with Cardiology in 3 weeks -pain control with hydrocodone as needed F/u PCP/[facility] within 1 week Documented By: Naya Guzman
== END 2017-10-15 13:40 | disposition home or self-care (01) | DRG 201 ==
LOC: C.EDB 19:52 → C.MED 10-14 02:00 → ENRESERV 10-14 02:27 → OBSVTOIN 10-14 19:34
PROVIDERS: ADMIT Internal Medicine; ATTEND Family Medicine
DX: J98.2 Interstitial emphysema (principal); R79.89 Other specified abnormal findings of blood chemistry

== ENCOUNTER → 2017-10-24 | Outpatient (CLI) | payer BC ==
[~2017-10-24] MED LIST: BCPILLS PO; HYDR-5688 PO
--- NOTE | 2017-10-24 13:36 | DIAGNOSTIC IMAGING REPORT ---
CHEST 2 VIEWS ROUTINE CLINICAL HISTORY: 21 years-old Female presenting with J93.9 [id number]. TECHNIQUE: PA and lateral views of the chest were obtained. COMPARISON: 10/15/2017. FINDINGS: Cardiomediastinal silhouette normal. Lungs and pleural spaces clear. Osseous structures normal. Upper abdomen normal. IMPRESSION: 1. No acute cardiopulmonary disease. No pneumothorax. Electronically signed by: Cuauhtemoc Castaneda M.D. 10/24/2017 1:34 PM Dictated Date/Time: 10/24/2017 1:34 PM
== END | disposition home or self-care (01) ==
LOC: C.RAD 13:11
PROVIDERS: ATTEND Surgery
DX: J93.9 Pneumothorax, unspecified (principal)